=== PATIENT | male | born 1990 | race Caucasian/White ===

== ENCOUNTER 2018-09-04 03:23 | Emergency (ER) | payer OTHER ==
[~2018-09-04] VITALS: Ht 180.3 cm; Wt 104.3 kg
[2018-09-04] MEDS ORDERED: HYDROCODON-ACE1 EAC7 PO (03:38)
[2018-09-04] MEDS ORDERED: ZOFRAN4 MG PO (04:12)
[2018-09-04 04:20] VITALS: BP 186/80
== END 2018-09-04 04:20 | disposition home or self-care (01) ==
LOC: M.ERS 03:23
DX: H57.13 Ocular pain, bilateral (principal); W89.0XXA Exposure to welding light (arc), initial encounter; Y93.89 Activity, other specified; Y92.89 Other specified places as the place of occurrence of the external cause; Y99.8 Other external cause status

== ENCOUNTER 2021-05-15 16:10 | Emergency (ER) | payer OTHER ==
[~2021-05-15] VITALS: Ht 180.3 cm; Wt 104.3 kg
[~2021-05-15 16:10] MED LIST: HYDROCODON-ACE1 EAC7 PO; ZOFRAN4 MG PO
[2021-05-15] MEDS ORDERED: HYDROCHLOROTH12.5 M1 PO (16:21)
[2021-05-15] MEDS ORDERED: LISINOPRIL20 MG PO (16:21)
[2021-05-15 17:13] LABS: ABSOLUTE BASOPHILS 0.1 thou/uL (0.0-0.2); ABSOLUTE LYMPHOCYTES 1.6 thou/uL (0.8-5.3); ABSOLUTE MONOCYTES 0.6 thou/uL (0.0-1.2); ABSOLUTE NEUTROPHILS 6.5 thou/uL (1.6-8.1); BASOPHILS 0.6 %; EOSINOPHILS 0.4 %; HEMATOCRIT 49.2 % (42.0-52.0); HEMOGLOBIN 17.5 gm/dL (14.0-18.0); LYMPHOCYTES 17.9 %; MCH 33.7 pg (26.0-34.0); MCHC 35.5 g/dL (28.0-37.0); MCV 94.9 fL (80.0-100.0); MONOCYTES 7.3 %; NUCLEATED RBCS 0 /100WBC; PLATELET COUNT* 253 thou/uL (150-400); POLYS 73.8 %; RBC 5.18 mil/uL (4.50-6.00); RDW-CV 13.4 % (10.5-14.5); WBC 8.8 thou/uL (4.0-11.0)
[2021-05-15 17:23] LABS: CREATININE 1.3 mg/dL (0.6-1.3); POTASSIUM 3.6 mmol/L (3.5-5.1)
[2021-05-15 17:27] LABS: ALBUMIN 4.6 g/dL (3.4-5.0); TOTAL BILIRUBIN 2.1 mg/dL (<0.1-1.0); TOTAL PROTEIN 9.2 g/dL (6.4-8.2)
[2021-05-15 19:02] VITALS: BP 144/92
--- NOTE | 2021-05-16 10:45 | EKG ---
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[facility] : 1990 Requested By: Kareen Nixon Order Number: [id number] MD: Mason Barrett Measurements Intervals [place] Rate: 70 P: 13 VA: 119 QRS: -13 QRSD: 102 T: 269 QT: 436 QTc: 471 Interpretive Statements Sinus rhythm Borderline short VA interval Nonspecific repol abnormality, diffuse leads Borderline prolonged QT interval Baseline wander in lead(s) V2 No previous ECG available for comparison Electronically Signed On 05-16-2021 10:44:57 CDT by Msaon Barrett [email or web address] <ELECTRONICALLY SIGNED> By: Mason Barrett MD, [facility] 05/16/21 1044 1615 1615 Mason Barrett MD, [facility] /EPI
== END 2021-05-15 19:03 | disposition home or self-care (01) ==
LOC: M.ERS 16:10
PROVIDERS: Physician Assistant
DX: E86.0 Dehydration (principal); R07.89 Other chest pain; R10.11 Right upper quadrant pain; R11.2 Nausea with vomiting, unspecified

== ENCOUNTER 2021-05-16 17:33 | Emergency (ER) | payer OTHER ==
[~2021-05-16] VITALS: Ht 180.3 cm; Wt 104.3 kg
[~2021-05-16 17:33] MED LIST changes: +HYDROCHLOROTH12.5 M1 PO; +LISINOPRIL20 MG PO
[2021-05-16 18:19] LABS: ABSOLUTE LYMPHOCYTES 1.9 thou/uL (0.8-5.3); ABSOLUTE MONOCYTES 0.6 thou/uL (0.0-1.2); ABSOLUTE NEUTROPHILS 5.1 thou/uL (1.6-8.1); BASOPHILS 0.6 %; EOSINOPHILS 0.6 %; HEMATOCRIT 44.7 % (42.0-52.0); HEMOGLOBIN 15.6 gm/dL (14.0-18.0); LYMPHOCYTES 24.7 %; MCH 33.5 pg (26.0-34.0); MCHC 34.9 g/dL (28.0-37.0); MONOCYTES 8.3 %; MPV 8.9 fl. (7.2-11.1); NUCLEATED RBCS 0 /100WBC; PLATELET COUNT* 217 thou/uL (150-400); POLYS 65.8 %; RBC 4.66 mil/uL (4.50-6.00); RDW-CV 13.4 % (10.5-14.5); WBC 7.8 thou/uL (4.0-11.0)
[2021-05-16 18:34] LABS: CALCIUM 9.3 mg/dL (8.5-10.1); CREATININE 1.1 mg/dL (0.6-1.3); POTASSIUM 3.8 mmol/L (3.5-5.1)
[2021-05-16 18:41] LABS: ALBUMIN 4.3 g/dL (3.4-5.0); TOTAL BILIRUBIN 1.2 mg/dL (<0.1-1.0); TOTAL PROTEIN 7.9 g/dL (6.4-8.2)
[2021-05-16 19:17] LABS: URINE BILIRUBIN NEGATIVE (Negative); URINE BLOOD NEGATIVE (Negative); URINE CLARITY CLEAR; URINE COLOR YELLOW; URINE GLUCOSE-RANDOM NEGATIVE (Negative); URINE KETONES 1+ (Negative); URINE LEUKOCYTES-REFLEX NEGATIVE (Negative); URINE NITRITE-REFLEX NEGATIVE (Negative); URINE PROTEIN NEGATIVE (Negative); URINE SPECIFIC GRAVITY 1.015 (1.005-1.030)
[2021-05-16 19:48] VITALS: BP 125/82
--- NOTE | 2021-05-17 11:05 | EKG ---
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: : 1990 Requested By: Zara German Order Number: [id number] MD: Mason Barrett Measurements Intervals [place] Rate: 63 P: 11 MA: 116 QRS: -18 QRSD: 102 T: 7 QT: 462 QTc: 474 Interpretive Statements Sinus rhythm Borderline short MA interval Borderline left axis deviation Borderline prolonged QT interval Baseline wander in lead(s) V1 Compared to ECG 05/15/2021 16:15:00 Early repolarization no longer present Electronically Signed On 05-17-2021 11:04:54 CDT by Mason Barrett [email or web address] <ELECTRONICALLY SIGNED> By: Mason Barrett MD, [facility] 05/17/21 1104 17 17 Mason Barrett MD, [facility] /EPI
== END 2021-05-16 19:49 | disposition home or self-care (01) ==
LOC: M.ERS 17:33
PROVIDERS: Nurse Practitioner Family
DX: E86.0 Dehydration (principal)

== ENCOUNTER 2021-11-14 20:42 | Observation (INO) | payer OTHER ==
[~2021-11-14] VITALS: Ht 180.3 cm; Wt 108.9 kg
[2021-11-14 21:08] VITALS: BP 170/102
[2021-11-14 21:45] LABS: URINE BILIRUBIN NEGATIVE (Negative); URINE BLOOD NEGATIVE (Negative); URINE CLARITY CLEAR; URINE COLOR YELLOW; URINE GLUCOSE-RANDOM NEGATIVE (Negative); URINE KETONES NEGATIVE (Negative); URINE LEUKOCYTES NEGATIVE (Negative); URINE NITRITE NEGATIVE (Negative); URINE PROTEIN NEGATIVE (Negative); URINE SPECIFIC GRAVITY 1.025 (1.005-1.030); URINE UROBILINOGEN 0.2 E.U./dl (0.2-1.0)
[2021-11-14 22:02] LABS: ABSOLUTE BASOPHILS 0.1 thou/uL (0.0-0.2); ABSOLUTE EOSINOPHILS 0.2 thou/uL (0.0-0.7); ABSOLUTE LYMPHOCYTES 2.3 thou/uL (0.8-5.3); ABSOLUTE MONOCYTES 0.5 thou/uL (0.0-1.2); ABSOLUTE NEUTROPHILS 4.6 thou/uL (1.6-8.1); EOSINOPHILS 2.2 %; HEMATOCRIT 46.4 % (42.0-52.0); LYMPHOCYTES 30.4 %; MCH 33.2 pg (26.0-34.0); MCHC 34.4 g/dL (28.0-37.0); MCV 96.5 fL (80.0-100.0); MONOCYTES 6.4 %; MPV 8.6 fl. (7.2-11.1); NUCLEATED RBCS 0 /100WBC; PLATELET COUNT* 243 thou/uL (150-400); RBC 4.81 mil/uL (4.50-6.00); RDW-CV 12.9 % (10.5-14.5); WBC 7.6 thou/uL (4.0-11.0)
[2021-11-14 22:05] LABS: CALCIUM 8.5 mg/dL (8.5-10.1); POTASSIUM 3.4 mmol/L (3.5-5.1)
[2021-11-14 22:10] LABS: ALBUMIN 3.7 g/dL (3.4-5.0); TOTAL BILIRUBIN 0.4 mg/dL (<0.1-1.0); TOTAL PROTEIN 7.7 g/dL (6.4-8.2)
[2021-11-15 04:59] VITALS: BP 150/86
[2021-11-15] MEDS ORDERED: NORVASC10 MG PO (12:27)
--- NOTE | 2021-11-16 10:13 | EKG ---
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 : 1990 Requested By: Noemi Veliz Order Number: [id number] MD: Sam Redd Measurements Intervals [place] Rate: 60 P: 31 DC: 140 QRS: -31 QRSD: 101 T: -13 QT: 511 QTc: 511 Interpretive Statements Sinus rhythm Probable left atrial enlargement Left axis deviation Nonspecific T abnormalities, diffuse leads Prolonged QT interval Compared to ECG 05/16/2021 18:18:08 no change Electronically Signed On 11-16-2021 10:13:30 LAMP INSPECTOR by Sam Redd [email or web address] <ELECTRONICALLY SIGNED> By: Sam Redd MD, [facility] 11/16/21 1013 12 12 Sam Redd MD, [facility] /EPI
== END 2021-11-15 14:00 | disposition home or self-care (01) ==
LOC: M.ERS 20:42 → M.TBA-ER 11-15 00:08
PROVIDERS: Physician Assistant; ADMIT Internal Medicine; ATTEND Internal Medicine
DX: S36.892A Contusion of other intra-abdominal organs, initial encounter (principal); Z20.822 Contact with and (suspected) exposure to COVID-19; I10 Essential (primary) hypertension; F17.200 Nicotine dependence, unspecified, uncomplicated; Z79.899 Other long term (current) drug therapy; X58.XXXA Exposure to other specified factors, initial encounter; Y93.89 Activity, other specified; Y92.89 Other specified places as the place of occurrence of the external cause